=== PATIENT | male | born 1955 | race African-American/Black ===

== ENCOUNTER 2019-03-21 18:12 | Emergency (ER) | payer OTHER ==
[~2019-03-21] VITALS: Ht 167.6 cm; Wt 61.2 kg
[2019-03-21 18:34] VITALS: BP 153/87
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
--- NOTE | 2019-03-21 18:39 | NUR ---
Note kelly in EDM - 03/21/19 at 1840 by [email or web address] ED Nurse Note: x-ray at bedside.
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
[2019-03-21] MEDS ORDERED: IBUPROFEN600 MG ORAL (20:16)
[2019-03-21 20:52] VITALS: BP 121/73
--- NOTE | 2019-03-21 20:52 | NUR ---
ER DISCHARGE NOTE: Patient is cleared to be discharged per ERMD, pt is aox4, on room air, with stable vital signs. pt was given dc and prescription instructions, pt was able to verbalize understanding, pt id band removed without complications. pt took all belongings.
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
== END 2019-03-21 20:52 | disposition home or self-care (01) ==
LOC: EMR 18:57
DX: M25.562 Pain in left knee (principal); M25.512 Pain in left shoulder; V03.90XA Pedestrian on foot injured in collision with car, pick-up truck or van, unspecified whether traffic or nontraffic accident, initial encounter; Y92.410 Unspecified street and highway as the place of occurrence of the external cause; X58.XXXA Exposure to other specified factors, initial encounter; Y92.9 Unspecified place or not applicable
CPT/HCPCS: 71045; 72170; 99284